=== PATIENT | male | born 1965 | race Caucasian/White ===

== ENCOUNTER → 2017-04-06 | Outpatient (CLI) | payer BC ==
--- NOTE | 2017-04-06 12:29 | MR ---
EXAMINATION TYPE: MR lumbar spine wo con DATE OF EXAM: 04/06/2017 12:10 PM COMPARISON: NONE HISTORY: intervertebral dis disorder, rt leg pain Multiplanar, MultiSpin echo imaging of the lumbar spine was performed. L1-L2: Normal disc appearance without desiccation. No herniation, protrusion or disc bulging. No ca nal stenosis is present. Foramina are patent bilaterally. L2-L3: Normal disc appearance without desiccation. No herniation, protrusion or disc bulging. No ca nal stenosis is present. Foramina are patent bilaterally. L3-L4: Normal disc appearance without desiccation. No herniation, protrusion or disc bulging. No ca nal stenosis is present. Foramina are patent bilaterally. L4-L5: Mild to moderate disc desiccation is noted. Posterocentral disc herniation effaces the ventral thecal sac without evidence for central stenosis or lateral recess stenosis. Near extrusion suspecte d. Foramina are patent bilaterally. L5-S1: Severe disc desiccation with vacuum disc and degenerative endplate marrow change. Retrolisthes is of L5 on S1 of 5.2 mm. Mild posterocentral disc herniation. Mild effacement ventral thecal sac. No evidence for central stenosis or lateral recess stenosis at this time. Lumbar segments are intact. No paraspinal masses are identified. Conus medullaris has a normal appe arance. IMPRESSION: 1. Degenerative disc disease as discussed. 2. Disc herniations at L4-5 and L5-S1.
== END | disposition home or self-care (01) ==
LOC: RADMRIMAIN 11:34
PROVIDERS: ATTEND Family Medicine
DX: M51.17 Intervertebral disc disorders with radiculopathy, lumbosacral region (principal)
CPT/HCPCS: 72148

== ENCOUNTER 2018-09-08 05:41 | Inpatient (IN) | payer BC ==
[2018-09-07 10:44] VITALS: BMI 22.8
[~2018-09-08 05:41] MED LIST: BACITRACIN 50,000 UNIT, POLYMYXIN B 500,000 UNIT in SODIUM CHLORIDE 0.9% IRRIGATIO 1,00... IRRIGATION ONE; ceFAZolin IN SWFI 2 GM/20 ML SYRINGE IVP ONE
[2018-09-08] MEDS ORDERED: DEXAMETHASONE SOD PHOSPHATE 10 MG/ML 1 ML VIAL IV ONE (06:06)
[2018-09-08] MEDS ORDERED: SCOPOLAMINE 1.5MG/72HR PATCH TRANSDERM ONE (06:06)
[2018-09-08] MEDS ORDERED: MIDAZOLAM 2 MG/2 ML VIAL IV PRN (06:06)
[2018-09-08] MEDS ORDERED: ONDANSETRON 4 MG/2 ML VIAL IVP ONE (06:06)
[2018-09-08] MEDS: LACTATED RINGERS 1,000 ML IV SCH (06:45)
[2018-09-08] MEDS ORDERED: LIDOCAINE 1% 20 ML VIAL (10MG/ML) FOR IV START INTRADERMA ONE (06:45)
[2018-09-08 06:57] LABS: Basophils % (A) 0 %; Eosinophils # (A) 0.1 k/uL (0-0.7); Eosinophils % (A) 1 %; HCT 48.5 % (39.0-53.0); HGB 15.9 gm/dL (13.0-17.5); Lymphocytes # (A) 1.7 k/uL (1.0-4.8); Lymphocytes % (A) 23 %; MCH 33.4 pg (25.0-35.0); MCHC 32.8 g/dL (31.0-37.0); MCV 101.9 fL (80.0-100.0); Mean Platelet Volume 6.7; Monocytes # (A) 0.7 k/uL (0-1.0); Monocytes % (A) 9 %; Neutrophils # (A) 4.9 k/uL (1.3-7.7); Neutrophils % (A) 65 %; Platelet Count 197 k/uL (150-450); RBC 4.76 m/uL (4.30-5.90); RDW 12.5 % (11.5-15.5); WBC 7.5 k/uL (3.8-10.6)
[2018-09-08 07:27] LABS: Anion Gap 9 mmol/L; Blood Urea Nitrogen 12 mg/dL (9-20); Calcium 9.8 mg/dL (8.4-10.2); Carbon Dioxide 23 mmol/L (22-30); Chloride 106 mmol/L (98-107); Glucose 83 mg/dL (74-99); Potassium 4.2 mmol/L (3.5-5.1); Sodium 138 mmol/L (137-145)
[2018-09-08] MEDS ORDERED: MIDAZOLAM 2 MG/2 ML VIAL ONE (07:32)
[2018-09-08] MEDS ORDERED: PROPOFOL 10 MG/ML 20 ML VIAL IV ONE (07:32)
[2018-09-08] MEDS ORDERED: LIDOCAINE 1% INJ 10MG/ML (20 ML MDV) ONE (07:32)
[2018-09-08] MEDS ORDERED: ROCURONIUM BROMIDE 10 MG/ML 10 ML VIAL IV ONE (07:32)
[2018-09-08] MEDS ORDERED: HEPARIN SODIUM,PORCINE 10,000 UNIT/ML 1 ML VIAL ONE (07:32)
[2018-09-08] MEDS ORDERED: PHENYLEPHRINE-0.9% NACL SYG 1 MG/10 ML SYRINGE ONE (07:32)
[2018-09-08] MEDS ORDERED: ONDANSETRON 4 MG/2 ML VIAL ONE (07:32)
[2018-09-08] MEDS ORDERED: fentaNYL (PF) 50 MCG/ML 2 ML AMP ONE (07:32)
[2018-09-08] MEDS ORDERED: SODIUM CHLORIDE 0.9% IRRIG 1,000 ML BTL IRRIGATION ONE (07:32)
[2018-09-08] MEDS ORDERED: THROMBIN (BOVINE) 5,000 UNIT VIAL TOPICAL ONE (08:03)
[2018-09-08] MEDS ORDERED: LIDOCAINE 0.5%-EPI 1:200,000 50 ML VIAL SQ ONE (08:03)
[2018-09-08] MEDS ORDERED: GELATIN SPONGE,ABSORB (LARGE) 1 EACH SPONGE TOPICAL ONE (08:03)
[2018-09-08] MEDS ORDERED: LACTATED RINGERS 1,000 ML IV ONE ×2 (08:31→11:40)
[2018-09-08] MEDS ORDERED: ONDANSETRON 4 MG/2 ML VIAL IVP PRN (11:54)
[2018-09-08] MEDS ORDERED: HYDROmorphone 1 MG/ML 1 ML SYRINGE IVP PRN (11:54)
[2018-09-08] MEDS ORDERED: BENZOCAINE/MENTHOL LOZENG 1 EACH LOZENGE MUCOUS MEM PRN (11:54)
[2018-09-08] MEDS ORDERED: MAGNESIUM HYDROXIDE 2,400 MG/10 ML CUP PO PRN (11:54)
[2018-09-08] MEDS ORDERED: MULTIVITAMINS, THERA 1 EACH TAB PO SCH (12:00)
--- NOTE | 2018-09-08 12:08 | P.OP ---
Date of Procedure: 09/08/18 Preoperative Diagnosis: Spinal stenosis L4 5 L5-S1, degenerative scoliosis, degenerative disc disease L4 5 L5-S1, herniated pulposus L4 5, lower extremity radiculopathy with weakness Postoperative Diagnosis: Same Anesthesia: GETA Pathology: none sent Condition: stable Disposition: PACU Description of Procedure: DESCRIPTION OF PROCEDURE(S): BRIEF OPERATIVE NOTE Preoperative Diagnosis: Spinal stenosis L4 5 L5-S1, degenerative scoliosis, degenerative disc disease L4 5 L5-S1, herniated pulposus L4 5, lower extremity radiculopathy with weakness Postoperative Diagnosis: Same Procedure: Laminectomy and decompression L4 5 L5-S1 Minimally invasive Posterior lateral decompression and facet fusion L4 5 L5-S1 Minimally invasive Transforaminal lumbar interbody fusion for a 360 fusion L4 5 L5-S1 Discectomy for decompression L4 5 L5-S1 Placement of interbody graft L4 5 L5-S1 Local autogenous bone grafting Harvesting of bone marrow aspirate via the vertebral body and pedicle of L4 Use of Cell Saver Use of bone graft extenders Surgeon: Dr. Cobos [employer] Installer: Samantha Morse Amanda Weimer PA's who is present throughout the entire the case persistence during positioning, dissection, exposure, visualization, and all crucial elements of the case as well as closure. Anesthesia: General anesthesia Estimated blood loss: Approximately 350 mL with 165 given back through Cell Saver Complications: None apparent Components implanted: K2M minimally invasive [place] pedicle screw system with 6.5 mm screws 2 rods one Shannon 9-12 extendable cage and 1 capstone interbody cage with 1 osteo amp sponge and 15 mL of DBX bone putty to supplemental local autogenous and bone marrow aspirate graft Disposition: To recovery room in good stable condition. OPERATIVE INDICATIONS The patient has had long-standing issues in their lower back and lower extremities. He's been having worsening pain despite conservative care. He was found have severe disc degeneration and stenosis at L4 5 and L5-S1. He had a disc herniation L4 5 as well. He was having low back and lower extremity radicular symptoms and was having worsening of his symptoms and inability to do his job and regular activities due to his pain; his lumbar spine. The patient has been through conservative treatment. We discussed various treatment options including surgery, and the patient wishes to proceed with surgery We discussed the risk, patient's alternatives and benefits of surgery including but not limited to, risk of bleeding risk of infection, risk of need for further surgery, risk of decreased, loss of motion, muscle function, malunion nonunion, hardware failure, nerve damage, paralysis, heart attack, blindness and . OPERATIVE SUMMARY After discussing all the risks, patient alternatives and benefits at length, the patient elected to proceed with surgical intervention, signed informed consent, and presented for their procedure. The patient was seen and examined in the preoperative holding area and the surgical site was marked. The patient was given antibiotics and brought to the operating room. The patient was sedated and intubated by anesthesia in standard fashion. The patient was positioned on to the operating room table in a prone position on the appropriate frame which was well-padded and well molded. We were careful to pad any bony prominences and pressure points. We were careful to maintain the patient's cervical spine and good neutral alignment and position throughout. The patient was prepped and draped in a normal standard fashion. An appropriate timeout and keystone protocol performed. We were able to proceed with the surgery. The local wound area was infiltrated with local anesthetic. I was able utilize C-arm guidance to establish appropriate position over the pedicles bilaterally at the appropriate levels at L4 5 and S1. With the appropriate levels confirmed was able to make small stab incisions over the appropriate pedicle sites bilaterally. Utilizing C-arm in his house able to establish a Jamshidi needle over the lateral aspect of the pedicle and advanced the trocar into the pedicle being careful not to breech superiorly inferiorly medially or laterally. Position was confirmed regularly with AP and lateral images on C-arm. I was able to establish the trocar into the pedicle appropriately into the posterior aspect of the vertebral body bilaterally at the appropriate levels. At L4 on the right I withdrew approximately 20 mL of bone marrow aspirate for use later in the case were autograft. I was able place the trocar appropriately at the pedicles at L4 5 and S1 bilaterally This was done at each of the pedicle positions and each of the vertebrae. I was able place the guidewire into the trocar and into the vertebral body appropriately under C-arm guidance. Dissection was taken down over the wire to the appropriate starting position for the screw placed. The appropriate length screw was chosen, threaded over the guidewire and screwed appropriately into the pedicle and vertebral body under C-arm guidance in excellent alignment and position with good bony purchase. This is done at each of the screw sites at the appropriate levels bilaterally at L4 5 and S1. With the screws intact I extended the incision to connect the screw hole sites on the left. I dissected down to establish access over the pars and lamina to the base of the spinous process. I was able to expose the facet joint. The capsule the facet was taken down and showed some facet arthrosis at the joint. I was able to use a combination of curettes and Kerrison rongeurs and a high- speed drill to take down the facet joint and do a facetectomy. At L5-S1 there is severe complete disc height loss. At L4 5 and L5-S1 there is evidence of facet arthrosis. At each of the levels a Partial laminectomy was also performed. I was able get excellent foraminal decompression and central decompression with undermining across midline to perform a laminectomy centrally and contralaterally. I was able get good central decompression. The ligamentum flavum was taken down to further decompress centrally and at bilateral neural foramen. I was able to expose the disc space and visualize the traversing nerve root. Note was made of some disc protrusion at the level causing further compression of the nerve root. At L4 5 there was obvious disc herniation. I was able to establish a annulotomy at the appropriate level protecting soft tissue and neural structures. Note was made of some disc desiccation at each of the disc interbody spaces with nearly complete disc height loss at L5-S1. I performed a complete discectomy with accommodation of curettes and rasps and scrapers. I was able get good endplate preparation at the disc space. I sized for the appropriate size interbody spacer protecting the soft tissue and neural structures. The wound was copiously irrigated and suctioned dry. There is no evidence of any dural tear or leak. I was able to pack the disc space with local autogenous bone graft as well as a small amount of bone graft which was also placed into the interbody cage itself. Protecting the soft tissue structures and neural structures I was able place the interbody cage in good alignment and good position with good fit and fill at the interbody space. His issues was confirmed with C-arm guidance. Good hemostasis maintained. There is no evidence of any dural tear or leak. The wound was irrigated and suctioned dry. With the hardware intact, intraoperative C-arm imaging was again taken which showed good alignment and position of the hardware at the appropriate levels at L4 5 and L5-S1. We were then able to measure, contour and place the rods and appropriate hardware bilaterally. I was able to place capcrews, tighten them down, and torque them with the torque screwdriver appropriately. With this intact I was able to place the local autogenous bone graft with additional bone graft enhancer as necessary into the posterior lateral gutters over the decorticated transverse processes. The remainder of the bone graft was placed over the facet joint on the contralateral side after taking down the facet joint capsule. With the bone graft intact, a stable construct, and good decompression at the appropriate levels, we were able to proceed with closure. Good hemostasis was maintained. There is no evidence of dural tear or leak. The fascia was closed for a watertight closure. he subcuticular tissue was closed with absorbable suture. The wound was cleaned and dried and dressed with the appropriate dressing. The drapes were broken down. The patient was gently rolled back onto their hospital bed being careful to maintain their cervical spine and good neutral alignment and position. They were woken up by anesthesia, extubated, and brought to the recovery room in good stable condition. The patient will be admitted to the hospital for appropriate postoperative care , medical management and monitoring. We will continue to follow them closely about the postoperative course.
[2018-09-08] MEDS: HYDROmorphone 1 MG/ML 1 ML SYRINGE IVP PRN ×7 (12:31→23:49)
[2018-09-08] MEDS ORDERED: MEPERIDINE 50 MG/ML SYRINGE IVP ONE ×2 (12:49→13:04)
--- NOTE | 2018-09-08 13:34 | XR ---
EXAMINATION TYPE: XR lumbar spine 2 or 3V DATE OF EXAM: 09/08/2018 CLINICAL HISTORY: pain TECHNIQUE: 5 paper images are submitted. COMPARISON: None. FINDINGS: Min invasive. Dr. Cobos. 5 images scanned. 84 sec fluoro time. Alignment is satisfactory. IMPRESSION: Satisfactory alignment.
[2018-09-08] MEDS: SODIUM CHLORIDE 0.9% 1,000 ML IV SCH (16:23)
[2018-09-08] MEDS: oxyCODONE-APAP 10-325MG 1 EACH TAB PO PRN ×2 (16:49→22:09)
[2018-09-08] MEDS: NICOTINE POLACRILEX 2 MG GUM BUCCAL PRN ×2 (17:25→22:06)
[2018-09-08] MEDS: ceFAZolin IN SWFI 2 GM/20 ML SYRINGE IVP SCH ×2 (17:25→23:50)
[2018-09-08] MEDS: NICOTINE 21MG/24HR PATCH TRANSDERM SCH (17:25)
[2018-09-08] MEDS: METOPROLOL TARTRATE 12.5 MG TAB PO SCH (18:22)
[2018-09-08] MEDS: DIAZEPAM 5 MG TAB PO SCH ×2 (18:23→22:06)
--- NOTE | 2018-09-08 20:45 | CONS ---
CONSULTATION DATE OF CONSULTATION: 09/08/2018 REASON FOR CONSULTATION: Medical management requested by Dr. Cobos. CONSULTATION: This is a 52-year-old patient who follows with Dr. Andre Osei out of [place]. Patient has been having chronic low back pain for over 10 years, progressively getting worse. Pain does localize to the lower back. It does radiate down to the leg with a burning sensation. The patient has trouble standing after some time, though patient has continued to work. Patient also noted that it has been interfering with his urination, he describes. Hence patient underwent surgery for the same. Postoperatively the patient has been having pain and muscle spasms. Patient also drinks about a pint of whiskey every night and some beer, last drink being the day before. When I came in, patient was rather anxious, agitated. Patient also smokes a pack and a half a day and seems to be having early alcohol withdrawals with tachycardia, agitation. Patient's is present. Patient has been drinking for quite a while. Patient's chronic stable conditions include hypertension and depression. Patient has slight perspiration currently. Postoperatively lying in bed, somewhat restless. Currently no hallucinations. REVIEW OF SYSTEMS: CONSTITUTIONAL: Tired. HEENT: None. RESPIRATORY: Slight shortness of breath. CARDIOVASCULAR: None. GASTROINTESTINAL: None. GENITOURINARY: As above. MUSCULOSKELETAL: Low back pain, muscle spasms. DERMATOLOGICAL: None. HEMATOLOGICAL: None. LYMPHATICS: None. PSYCHIATRY: Anxious. Depression. NEUROLOGICAL: Patient had radicular pain prior to surgery. PAST MEDICAL HISTORY: 1. Hypertension. 2. Osteoarthritis. 3. Lower back pain with radiation. 4. Depression. 5. ADHD. PAST SURGICAL HISTORY: 1. Hemorrhoid. 2. Hernia repair. SOCIAL HISTORY: Has been smoking 2 packs a day for close to 40 years. Drinks a pint of whiskey at least every day and a beer a day. . Does work. FAMILY HISTORY: Reviewed; noncontributory to presentation. HOME MEDICATIONS: 1. Percocet 10 one tablet at bedtime p.r.n. 2. Adderall 10 mg a day. 3. Tenormin 25 mg b.i.d. ALLERGIES: NONE. PHYSICAL EXAMINATION: Temperature 98.5, pulse 92, respiration 16, blood pressure 162/89, pulse ox 100% on 2 L. GENERAL APPEARANCE: Average build. Lying in bed. Somewhat agitated, restless. EYES: Pupils equal. Conjunctivae normal. HEENT: External appearance of nose and ears normal. Oral cavity normal. NECK: JVD not raised. Mass not palpable. RESPIRATORY: Effort increased. LUNGS: Decreased breath sounds. CARDIOVASCULAR: First and second sounds normal. No edema. ABDOMEN: Soft, non-tender. Liver and spleen not palpable. LYMPHATIC: No lymph node palpable in neck or axillae. PSYCHIATRY: Alert and oriented x3. Mood and affect very anxious-appearing, agitated. MUSCULOSKELETAL: Patient has dressing over the operative site. NEUROLOGICAL: Patient is moving both lower extremities. INVESTIGATIONS: White count 7.5, hemoglobin 15.9, potassium 4.2. ASSESSMENT: 1. Lumbar spine degenerative joint disease stenosis with lower extremity radiculopathy followed by surgery. 2. Chronic nicotine dependence. Patient is a cigarette smoker with nicotine withdrawal. 3. Chronic alcohol dependence. 4. Acute alcohol withdrawal syndrome. 5. Essential hypertension. 6. Depression not otherwise specified. PLAN: For early alcohol withdrawal syndrome and early DTs, we will start the patient on Valium 5 mg p.o. q.8. I will also put the patient on Lopressor 12.5 p.o. 3 times a day for sympathetic drive to be controlled. Other pain medications patient is getting from Dr. Cobos for his lower back surgery. We will also give a nicotine patch and nicotine gum for withdrawal symptoms. Care was discussed with the patient and his . Questions were answered. Keep a close eye on the patient. Patient is also on IV prophylaxis with IV Ancef. Thank you, Dr. Cobos. MMANNAMARIEL / XENIAN: [id number] /
[2018-09-08] MEDS ORDERED: ATENOLOL 25 MG TAB PO SCH (21:00)
[2018-09-09] MEDS: oxyCODONE-APAP 10-325MG 1 EACH TAB PO PRN ×3 (03:19→21:35)
[2018-09-09] MEDS: NICOTINE POLACRILEX 2 MG GUM BUCCAL PRN ×3 (03:21→21:36)
[2018-09-09] MEDS: HYDROmorphone 1 MG/ML 1 ML SYRINGE IVP PRN ×3 (04:49→18:32)
[2018-09-09] MEDS: SODIUM CHLORIDE 0.9% 1,000 ML IV SCH ×2 (04:53→15:46)
[2018-09-09] MEDS: LACTATED RINGERS 1,000 ML IV SCH (07:15)
[2018-09-09] MEDS: NICOTINE 21MG/24HR PATCH TRANSDERM SCH (07:55)
[2018-09-09] MEDS: DIAZEPAM 5 MG TAB PO SCH ×3 (07:56→21:30)
[2018-09-09] MEDS: SENNOSIDES-DOCUSATE SODIUM 1 EACH TAB PO SCH (07:56)
[2018-09-09] MEDS: THIAMINE 100 MG TAB PO SCH (07:56)
[2018-09-09] MEDS: MULTIVITAMINS, THERA 1 EACH TAB PO SCH (07:56)
[2018-09-09] MEDS: METOPROLOL TARTRATE 12.5 MG TAB PO SCH ×2 (07:56→21:30)
[2018-09-09 08:48] LABS: Basophils % (A) 0 %; Eosinophils % (A) 0 %; HCT 43.1 % (39.0-53.0); HGB 14.4 gm/dL (13.0-17.5); Lymphocytes # (A) 0.9 k/uL (1.0-4.8); Lymphocytes % (A) 8 %; MCH 33.9 pg (25.0-35.0); MCHC 33.3 g/dL (31.0-37.0); MCV 101.7 fL (80.0-100.0); Mean Platelet Volume 7.1; Monocytes % (A) 8 %; Neutrophils # (A) 9.8 k/uL (1.3-7.7); Neutrophils % (A) 83 %; Platelet Count 144 k/uL (150-450); RBC 4.24 m/uL (4.30-5.90); RDW 12.3 % (11.5-15.5); WBC 11.9 k/uL (3.8-10.6)
[2018-09-09] MEDS ORDERED: Dextroamphetamine/Amphetamine [Adderall] 10 MG PO SCH (09:00)
[2018-09-09 09:10] LABS: Anion Gap 11 mmol/L; Blood Urea Nitrogen 6 mg/dL (9-20); Calcium 8.9 mg/dL (8.4-10.2); Carbon Dioxide 18 mmol/L (22-30); Chloride 105 mmol/L (98-107); Glucose 76 mg/dL (74-99); Potassium 4.3 mmol/L (3.5-5.1); Sodium 134 mmol/L (137-145)
--- NOTE | 2018-09-09 13:30 | P.PN ---
Progress Note - Text Progress Note Date: 09/09/18 Postoperative day #1 Patient is seen and examined today at bedside. The patient has some pain around the surgical site as expected. Pain is being controlled with medication. He was having significant difficulty with his pain control as he does take significant amount of pain medication preoperatively. We were able to sit him up at that side today. Physical Exam Afebrile with stable vital signs Abdomen is soft nontender. Chest has good excursion deep and space expiration The incision site is clean dry and intact. No erythema there is no purulence. There is small drainage on the dressing but there is no active drainage. There is some swelling at the site but it appears stable. Extremities have not had neurologic change from prior to surgery. He has sustained dorsal flexion plantarflexion and EHL intact. Calves and thighs were soft nontender without evidence of DVT. Negative Homans Assessment/Plan Postoperative day #1 status post minimally invasive decompression and fusion L4 5 L5-S1 for spinal stenosis with degenerative disc disease and general scoliosis and lower extremity radiculopathy Patient is progressing as expected from the surgery. He is having some difficulty with his pain control but he seems to be stabilizing. Hopefully we' ll we will be able to transition him from IV medications oral medications tomorrow her the next day. He is considering possibility of going home tomorrow and we will need to be stable with oral medications before he is able to be discharged. We will continue to increase the patient's mobilization with therapy. We will continue pain control with oral or IV medications. We'll continue to follow patient closely.
--- NOTE | 2018-09-09 23:25 | PN ---
PROGRESS NOTE DATE OF SERVICE: 09/09/2018. PRESENTING COMPLAINT: Lumbar surgery. INTERVAL HISTORY: Patient is status post lumbar surgery, was put on Valium for alcohol withdrawal and also nicotine withdrawal, on nicotine patch and nicotine gum. The patient states having significant back pain, not much of an appetite. Normally does not eat much anyway he says. The patient sat on the edge of the bed. No nausea, vomiting. No fever. REVIEW OF SYSTEMS: Done for constitutional, cardiovascular, GI, pulmonary, musculoskeletal and relevant findings above. CURRENT MEDICATIONS: Reviewed that include Valium 5 mg t.i.d. and Lopressor. PHYSICAL EXAMINATION: VITAL SIGNS: Temperature 99.2, pulse 94, respiration 18, blood pressure 130/82, pulse ox 98% on room air. GENERAL APPEARANCE: Lying in bed, a bit less anxious. EYES: Pupils equal. Conjunctivae normal. NECK: JVD not raised. Mass not palpable. RESPIRATORY effort normal. LUNGS decreased breath sounds. CARDIOVASCULAR : 1st and 2nd sounds, no edema. ABDOMEN: Soft, nontender. Liver and spleen not palpable. PSYCHIATRY: Alert and oriented x3. Mood and affect is normal. INVESTIGATIONS: White count 11.9, hemoglobin 14.4. Potassium 4.3. ASSESSMENT: 1. Lumbar surgery for severe degenerative joint disease, spinal stenosis and radiculopathy. 2. Chronic nicotine dependence in a cigarette smoker with nicotine withdrawal. 3. Chronic alcohol dependence. 4. Acute alcohol withdrawal syndrome. 5. Essential hypertension. 6. Depression, not otherwise specified. PLAN: We will keep the patient on current dose of Valium today. Switch to 2 mg 3 times a day. Keep the patient on nicotine patch. Activity as per Dr. Cobos. The patient encouraged to improve his oral intake. MMODL / IJN: [id number] /
[2018-09-10] MEDS: HYDROmorphone 1 MG/ML 1 ML SYRINGE IVP PRN ×4 (01:44→23:43)
[2018-09-10] MEDS: oxyCODONE-APAP 10-325MG 1 EACH TAB PO PRN ×3 (03:40→19:44)
[2018-09-10] MEDS: LACTATED RINGERS 1,000 ML IV SCH (05:10)
[2018-09-10] MEDS: SODIUM CHLORIDE 0.9% 1,000 ML IV SCH ×2 (05:10→19:32)
[2018-09-10] MEDS: NICOTINE POLACRILEX 2 MG GUM BUCCAL PRN ×2 (06:32→15:22)
[2018-09-10 07:39] LABS: Basophils % (A) 0 %; Eosinophils % (A) 0 %; HCT 39.9 % (39.0-53.0); HGB 13.7 gm/dL (13.0-17.5); Lymphocytes # (A) 0.8 k/uL (1.0-4.8); Lymphocytes % (A) 7 %; MCH 34.5 pg (25.0-35.0); MCHC 34.3 g/dL (31.0-37.0); MCV 100.5 fL (80.0-100.0); Mean Platelet Volume 7.2; Monocytes # (A) 0.9 k/uL (0-1.0); Monocytes % (A) 8 %; Neutrophils # (A) 9.3 k/uL (1.3-7.7); Neutrophils % (A) 82 %; Platelet Count 140 k/uL (150-450); RBC 3.97 m/uL (4.30-5.90); RDW 12.3 % (11.5-15.5); WBC 11.3 k/uL (3.8-10.6)
[2018-09-10] MEDS: METOPROLOL TARTRATE 12.5 MG TAB PO SCH ×2 (08:32→21:04)
[2018-09-10] MEDS: SENNOSIDES-DOCUSATE SODIUM 1 EACH TAB PO SCH (08:32)
[2018-09-10] MEDS: NICOTINE 21MG/24HR PATCH TRANSDERM SCH (08:33)
[2018-09-10] MEDS: DIAZEPAM 2 MG TAB PO SCH ×4 (08:33→21:04)
[2018-09-10] MEDS ORDERED: oxyCODONE-APAP 10-325MG 1 EACH TAB PO PRN (08:50)
--- NOTE | 2018-09-10 09:00 | P.PN ---
Progress Note - Text Progress Note Date: 09/10/18 Orthopedic Spine Patient is a pleasant 52-year-old male who is seen and examined at the bedside following posterior lateral decompression and fusion performed Thursday. Patient states they are doing ok postsurgically. He has been able to get out of bed on his own and ambulate to the restroom. He has had a bowel movement this morning. He does continue to ambulate and change positions slowly. He continues to require IV and oral medications for pain control. He continues to have low back pain at the surgical sites and left lower extremity radiculopathy. He is hoping to improve today so he can be discharged home tomorrow. Currently does not complain of nausea, vomiting, fever, or chills. Patient states pain has been adequately controlled. Patient is eating and voiding freely without difficulty. Physical Exam Lumbar Fusion: Status post surgical day number 2 Patient is awake, alert, and oriented 3 Vital signs stable Good chest excursion with deep inspiration and expiration Abdomen soft nontender Dorsiflexion, plantarflexion, and extensor hallucis longus positive sustained bilaterally No signs or symptoms of DVT; no calf pain; pneumatic cuffs not currently intact bilateral lower extremities Dressing is dry and intact; no erythema, purulence, or signs of infection No significant pain with palpation over the surgical sites Neurovascularly intact bilaterally lower extremities Assessment: Status post L4-5 & L5-S1 minimally invasive posterior lateral decompression and fusion with transforaminal lumbar interbody fusion Lumbosacral spinal canal stenosis Degenerative scoliosis Lumbosacral degenerative disc disease Left lower extremity radiculopathy with weakness History of hypertension, current every day smoker, and frequent alcohol consumption Plan: 1. Ambulate as tolerated; work with Physical Therapy to increase mobilization 2. Continue pain control with oral medications; will plan to start weaning the patient off of Dilaudid IV and will plan to increase Percocet 10 mg has 325 mg 1 -2 tabs every 6 hours as needed for pain 3. Dressing to remain intact with Telfa and Tegaderm; plan for dressing change prior to discharge home 4. Medical management can continue to manage patient for patient's other medical issues 5. We will continue to follow the patient closely; If the patient is able to improve and pain is better controlled oral medications, we will plan for discharge home as early as tomorrow, 09/11/2018 6. Patient can follow-up with Yaw Brownlee PA-C or Dr. James Cobos at [facility] in 2-3 weeks following discharge
[2018-09-10] MEDS: THIAMINE 100 MG TAB PO SCH (14:05)
[2018-09-10] MEDS: MULTIVITAMINS, THERA 1 EACH TAB PO SCH (14:05)
[2018-09-11] MEDS: NICOTINE POLACRILEX 2 MG GUM BUCCAL PRN ×2 (00:29→10:31)
--- NOTE | 2018-09-11 01:23 | PN ---
PROGRESS NOTE DATE OF SERVICE: September 10, 2018. PRESENTING COMPLAINT: Lumbar surgery. INTERVAL HISTORY: Patient is status post lumbar surgery. Also had alcohol and nicotine withdrawal. Doing much better today sitting up in a chair, smiling. He has got a brace. Pain is better controlled. Did tolerate some diet. Far less anxious. REVIEW OF SYSTEMS: Done for constitutional, cardiovascular, GI, pulmonary, musculoskeletal and relevant findings as above. CURRENT MEDICATIONS: Reviewed that include Valium 2 mg p.o. t.i.d. and normal saline. PHYSICAL EXAMINATION: VITAL SIGNS: Temperature 98.6, pulse 100, respirations 16, blood pressure 138/85, pulse ox 99% on room air. GENERAL APPEARANCE: Sitting up in a chair, comfortable, smiling. EYES: Pupils equal. Conjunctivae normal. NECK: JVD not raised. Mass not palpable. RESPIRATORY: Effort normal. LUNGS: Decreased breath sounds. CARDIOVASCULAR: 1st and 2nd sounds normal. No edema. ABDOMEN: Soft, nontender. Liver and spleen not palpable. PSYCHIATRY: Alert and oriented x3. Mood and affect stable. INVESTIGATIONS: White count 11.3, hemoglobin 13.7. ASSESSMENT: 1. Lumbar surgery for severe degenerative joint disease and spinal stenosis and radiculopathy. 2. Chronic nicotine dependence in a cigarette smoker with nicotine withdrawal. 3. Chronic alcohol dependence. 4. Acute alcohol withdrawal syndrome. 5. Essential hypertension. 6. Depression, not otherwise specified. 7. Rule out hyperthyroidism. PLAN: Will cut back the dose of Valium further. Also DC the IV fluids. Overall, patient looking much better. MMODL / IJN: [id number] /
[2018-09-11] MEDS: oxyCODONE-APAP 10-325MG 1 EACH TAB PO PRN ×2 (04:29→09:29)
[2018-09-11 07:11] VITALS: BP 139/84; PULSE 84; RESP 18; TEMP 97.8
[2018-09-11] MEDS ORDERED: DIAZEPAM 2 MG TAB PO SCH (09:00)
[2018-09-11] MEDS: METOPROLOL TARTRATE 12.5 MG TAB PO SCH (09:24)
[2018-09-11] MEDS: NICOTINE 21MG/24HR PATCH TRANSDERM SCH (09:25)
[2018-09-11] MEDS: THIAMINE 100 MG TAB PO SCH (09:25)
[2018-09-11] MEDS: LACTATED RINGERS 1,000 ML IV SCH (09:25)
[2018-09-11] MEDS: SENNOSIDES-DOCUSATE SODIUM 1 EACH TAB PO SCH (09:25)
[2018-09-11] MEDS: MULTIVITAMINS, THERA 1 EACH TAB PO SCH (09:25)
--- NOTE | 2018-09-11 10:47 | P.DS ---
Providers Date of admission: 09/08/18 05:41 Expected date of discharge: 09/11/18 Attending physician: Vito Cobos Consults: 09/08/18 11:54 Consult Physician Routine Consulting Provider: Kirk Carmona Consult Reason/Comments: Medical management Do you want consulting provider notified?: Yes Primary care physician: Andre Osei - Discharge Diagnosis(es) (1) Lumbosacral spinal stenosis Current Visit: Yes Status: Acute (2) Lumbar spinal stenosis Current Visit: Yes Status: Acute (3) Lumbar degenerative disc disease Current Visit: Yes Status: Acute (4) DDD (degenerative disc disease), lumbosacral Current Visit: Yes Status: Acute (5) Degenerative scoliosis in adult patient Current Visit: Yes Status: Acute (6) Lumbar back pain with radiculopathy affecting lower extremity Current Visit: Yes Status: Acute (7) Herniated nucleus pulposus, lumbar Current Visit: Yes Status: Acute (8) Status post lumbar spinal fusion Current Visit: Yes Status: Acute (9) Hypertension Current Visit: Yes Status: Acute (10) Tobacco use Current Visit: Yes Status: Acute Hospital Course: This is a pleasant 52-year-old male who presented with L4-5 and L5-S1 degenerative disc disease and spinal canal stenosis, L4-5 herniated nucleus pulposus, degenerative scoliosis, and lower extremity radiculopathy with weakness who failed outpatient conservative therapy. He was admitted for an L4- 5 and L5-S1 minimally invasive posterior lateral decompression and fusion with transforaminal lumbar interbody fusion. The patient tolerated the procedure well and did well postoperatively. He had some difficulty with pain control initially states this pain has been steadily improving and has been controlled. He has been able to discontinue Dilaudid. Pain continues to be control with Percocet 10 mg/325 mg which he was previously prescribed in the outpatient setting by Dr. Osei. Condition on day of discharge stable. Patient will be discharged home. Patient was cleared preoperatively for surgery by . Patient currently denies any nausea, vomiting, fever, or chills. Patient is eating and voiding freely without difficulty. Patient may shower Tegaderm dressing intact. Patient may remove Tegaderm dressing in 2 days and shower without a dressing at that time. Patient should keep Steri-Strips intact and allow them to fall off naturally. Patient should refrain from driving until at least after their first follow-up appointment in the office. Patient should avoid excessive bending, lifting, and twisting; no lifting greater than 10 pounds. MAPS has been reviewed today, 09/11/2018, with an Overall Overdose Risk Score of 110. An "Opiod Start Talking" Forn has been signed by the patient and myself in place in the patient's chart. A prescription has been written for Percocet 10 mg/325 mg 1 tab every 8 hours as needed for pain dispense #21. Patient will plan to follow with Dr. Osei in the outpatient setting who may plan to prescribe his narcotic medications at that time. Patient has a medical history which also includes hypertension with current every day tobacco use and frequent consumption of alcohol. Physical Exam on day of discharge: Patient is awake, alert, and oriented 3 Vital signs stable Good chest excursion with deep inspiration and expiration Abdomen soft nontender No signs or symptoms of DVT; no calf pain Extensor hallucis longus, plantarflexion, and dorsiflexion positive sustained bilateral lower extremities Incision is clean, dry, and intact; no erythema, purulence, or signs of infection Tegaderm dressing and non-stick Telfa intact Procedures: L4-5 and L5-S1 minimally invasive posterior lateral decompression and fusion with transforaminal lumbar interbody fusion Patient Condition at Discharge: Stable Plan - Discharge Summary Discharge Rx Participant: Yes New Discharge Prescriptions: New oxyCODONE-APAP 10-325MG [Percocet 10-325 mg] 1 tab PO Q8HR PRN #21 tab PRN Reason: Pain No Action oxyCODONE-APAP 10-325MG [Percocet 10-325 mg] 1 tab PO HS PRN PRN Reason: Pain Dextroamphetamine/Amphetamine [Adderall] 10 mg PO DAILY Atenolol [Tenormin] 25 mg PO BID Discharge Medication List Atenolol [Tenormin] 25 mg PO BID 09/07/18 [History] Dextroamphetamine/Amphetamine [Adderall] 10 mg PO DAILY 09/07/18 [History] oxyCODONE-APAP 10-325MG [Percocet 10-325 mg] 1 tab PO HS PRN 09/07/18 [History] oxyCODONE-APAP 10-325MG [Percocet 10-325 mg] 1 tab PO Q8HR PRN #21 tab 09/11/18 [Rx] Follow up Appointment(s)/Referral(s): Vito Cobos DO [Doctor of Osteopathic Medicine] - 09/24/18 9:00 am (With Marcos Brownlee) Andre Osei MD [Primary Care Provider] - 09/14/18 4:45 pm Activity/Diet/Wound Care/Special Instructions: 1. Keep site clean. 2. May shower with waterproof Tegaderm intact. Do not soak in a tub. 3. On Thursday May shower with area uncovered, but leave Steri-Strips intact and allow them to fray off on their own. 4. May ambulate to tolerance. 5. Avoid heavy or rigorous activity. No excessive or repetitive bending twisting or lifting. 6. No climbing. 7. No lifting greater than 20 pounds. 8. LSO brace for comfort. 9. Take medications as prescribed. Discharge Disposition: HOME SELF-CARE
--- NOTE | 2018-09-12 22:58 | PN ---
PROGRESS NOTE DATE OF SERVICE: 09/11/2018 PRESENTING COMPLAINT: Lumbar surgery. INTERVAL HISTORY: Patient is status post lumbar surgery, also treated for alcohol and nicotine withdrawal, doing much better. Has been in the hallway somewhat hyperactive practically. is present. Pain is much better controlled. The patient dose was tapered off. Valium dose was tapered off. REVIEW OF SYSTEMS: Done for constitutional, cardiovascular, GI, pulmonary, musculoskeletal and findings as above. CURRENT MEDICATIONS: Reviewed. PHYSICAL EXAMINATION: VITAL SIGNS: Temperature 97.8, pulse 84, respiratory 18, blood pressure 139/84, pulse ox 99% on room air. GENERAL APPEARANCE: Sitting in a chair, comfortable, a bit anxious. EYES: Pupil's equal. Conjunctivae normal. NECK JVD not raised. Mass not palpable. RESPIRATORY effort normal. LUNGS: Decreased breath sounds. CARDIOVASCULAR: 1st and 2nd sounds normal. No edema. ABDOMEN: Soft, nontender. Liver and spleen not palpable. The patient is witnessed to walk up and down the hurley. INVESTIGATIONS: No blood work from today. ASSESSMENT: 1. Lumbar surgery for severe degenerative joint disease and spinal stenosis with clinical much improvement postsurgical. 2. Chronic nicotine dependence in a cigarette smoker and nicotine withdrawal. 3. Chronic alcohol dependence. 4. Acute alcohol withdrawal syndrome, much improved. 5. Essential hypertension. 6. Depression, not otherwise specified. 7. Hyperthyroidism ruled out. PLAN: I had a very long talk with the patient and the . The patient kept insisting that he will take alcohol, though cut down the dose and also it was explained to him repeatedly that he has already been off alcohol and smoking for the last 4 days and does sometimes heated discussion between the and the patient, did calm them down and kept reinforcing to the patient the importance of complete cessation and to get help outside if he needs to. The patient will be discharged on nicotine patch. Other pain medications per Dr. Cobos's team. Total time of about 40 minutes was spent with over 25-30 minutes of discussion. MMANNAMARIEL / IJN: [id number] /
== END 2018-09-11 13:46 | disposition home or self-care (01) | DRG 454 ==
LOC: 2ORMAIN 05:41 → 4SSUR 12:31
PROVIDERS: ADMIT Orthopaedic Surgery Orthopaedic Surgery of the Spine; ATTEND Orthopaedic Surgery Orthopaedic Surgery of the Spine
PROC: 0SG0071 Fusion of Lumbar Vertebral Joint with Autologous Tissue Substitute, Posterior Approach, Posterior Column, Open Approach (ICD-10-PCS; 2018-09-08)
PROC: 0SG30AJ Fusion of Lumbosacral Joint with Interbody Fusion Device, Posterior Approach, Anterior Column, Open Approach (ICD-10-PCS; 2018-09-08)
PROC: 0SG3071 Fusion of Lumbosacral Joint with Autologous Tissue Substitute, Posterior Approach, Posterior Column, Open Approach (ICD-10-PCS; 2018-09-08)
PROC: 0ST20ZZ Resection of Lumbar Vertebral Disc, Open Approach (ICD-10-PCS; 2018-09-08)
PROC: 0ST40ZZ Resection of Lumbosacral Disc, Open Approach (ICD-10-PCS; 2018-09-08)
PROC: 07DS3ZZ Extraction of Vertebral Bone Marrow, Percutaneous Approach (ICD-10-PCS; 2018-09-08)
PROC: 30233N0 Transfusion of Autologous Red Blood Cells into Peripheral Vein, Percutaneous Approach (ICD-10-PCS; 2018-09-08)
PROC: 0SG00AJ Fusion of Lumbar Vertebral Joint with Interbody Fusion Device, Posterior Approach, Anterior Column, Open Approach (ICD-10-PCS; principal; 2018-09-08 07:30)
DX: M48.07 Spinal stenosis, lumbosacral region (principal); F10.231 Alcohol dependence with withdrawal delirium; F17.213 Nicotine dependence, cigarettes, with withdrawal; M47.16 Other spondylosis with myelopathy, lumbar region; F32.9 Major depressive disorder, single episode, unspecified; F90.9 Attention-deficit hyperactivity disorder, unspecified type; G89.29 Other chronic pain; I10 Essential (primary) hypertension; M19.90 Unspecified osteoarthritis, unspecified site; M51.17 Intervertebral disc disorders with radiculopathy, lumbosacral region; M51.16 Intervertebral disc disorders with radiculopathy, lumbar region; M47.22 Other spondylosis with radiculopathy, cervical region; M43.17 Spondylolisthesis, lumbosacral region; M48.061 Spinal stenosis, lumbar region without neurogenic claudication; M41.86 Other forms of scoliosis, lumbar region; F41.9 Anxiety disorder, unspecified; H91.90 Unspecified hearing loss, unspecified ear; R26.9 Unspecified abnormalities of gait and mobility; Z79.899 Other long term (current) drug therapy; Z83.3 Family history of diabetes mellitus; Z82.49 Family history of ischemic heart disease and other diseases of the circulatory system
CPT/HCPCS: 72100; 80048; 84443; 85025; 86850; 86891; 86900; 86901

== ENCOUNTER → 2019-07-23 | Outpatient (CLI) | payer BC ==
[2019-07-23 11:25] LABS: Basophils # (A) 0.1 k/uL (0-0.2); Basophils % (A) 1 %; Eosinophils # (A) 0.2 k/uL (0-0.7); Eosinophils % (A) 3 %; HCT 49.6 % (39.0-53.0); HGB 16.4 gm/dL (13.0-17.5); Lymphocytes # (A) 3.1 k/uL (1.0-4.8); Lymphocytes % (A) 50 %; MCH 34.1 pg (25.0-35.0); MCHC 33.1 g/dL (31.0-37.0); MCV 103.2 fL (80.0-100.0); Macrocytosis Slight; Mean Platelet Volume 5.7; Monocytes # (A) 0.4 k/uL (0-1.0); Monocytes % (A) 7 %; Neutrophils # (A) 2.1 k/uL (1.3-7.7); Neutrophils % (A) 35 %; Platelet Count 213 k/uL (150-450); RBC 4.81 m/uL (4.30-5.90); RDW 12.7 % (11.5-15.5); WBC 6.1 k/uL (3.8-10.6)
[2019-07-23 16:48] LABS: African American GFR (CKD) 114.2 (60.0-200.0); Albumin 4.8 g/dL (3.80-4.90); Albumin/Globulin Ratio 2.53 (1.60-3.17); Anion Gap 6.3 mmol/L (4.00-12.00); BUN/Creat Ratio 7.78 Ratio (12.00-20.00); Calcium 9.6 mg/dL (8.7-10.3); Carbon Dioxide 29.7 mmol/L (21.6-31.8); Chol/HDL Ratio 2.6; Globulin 1.9 g/dL (1.6-3.3); LDL Cholesterol,Calculated 66.6 mg/dL (0.0-131.0); Potassium 4.5 mmol/L (3.5-5.5); Total Bilirubin 0.4 mg/dL (0.2-1.2); Total Protein 6.7 g/dL (6.2-8.2); VLDL Calculation 45.4 mg/dL (5.00-40.00)
== END | disposition home or self-care (01) ==
LOC: LABWHC1 10:22
PROVIDERS: ATTEND Family Medicine
DX: Z00.00 Encounter for general adult medical examination without abnormal findings (principal); Z12.11 Encounter for screening for malignant neoplasm of colon
CPT/HCPCS: 36415; 80053; 80061; 82607; 84153; 84443; 85025

== ENCOUNTER → 2020-12-08 | Outpatient (CLI) | payer BC ==
[2020-12-08 12:35] LABS: Basophils % (A) 0 %; Eosinophils # (A) 0.2 k/uL (0-0.7); Eosinophils % (A) 3 %; HCT 49.2 % (39.0-53.0); HGB 16.3 gm/dL (13.0-17.5); Lymphocytes # (A) 2.2 k/uL (1.0-4.8); Lymphocytes % (A) 37 %; MCH 34.4 pg (25.0-35.0); MCHC 33.2 g/dL (31.0-37.0); MCV 103.5 fL (80.0-100.0); Macrocytosis Slight; Mean Platelet Volume 6.9; Monocytes # (A) 0.5 k/uL (0-1.0); Monocytes % (A) 8 %; Neutrophils # (A) 2.9 k/uL (1.3-7.7); Neutrophils % (A) 49 %; Platelet Count 201 k/uL (150-450); RBC 4.75 m/uL (4.30-5.90); RDW 12.5 % (11.5-15.5)
[2020-12-08 15:06] LABS: Erythrocyte Sedimentation Rate 2 mm/hr (0-15)
[2020-12-08 17:51] LABS: African American GFR (CKD) 99.1 (60.0-200.0); Albumin 4.4 g/dL (3.80-4.90); Albumin/Globulin Ratio 1.69 (1.60-3.17); Anion Gap 4.9 mmol/L (4.00-12.00); Calcium 10.3 mg/dL (8.7-10.3); Carbon Dioxide 29.1 mmol/L (21.6-31.8); Globulin 2.6 g/dL (1.6-3.3); Non-African American GFR(CKD) 85.5 (60.0-200.0); Potassium 4.4 mmol/L (3.5-5.5); Total Bilirubin 0.6 mg/dL (0.3-1.2)
[2020-12-08 17:52] LABS: C Reactive Protein, High Sens 0.39 mg/L (0.000-3.000); Chol/HDL Ratio 2.71; LDL Cholesterol,Calculated 84.2 mg/dL (0.0-131.0); VLDL Calculation 23.8 mg/dL (5.00-40.00)
== END | disposition home or self-care (01) ==
LOC: LABMAIN 11:57
PROVIDERS: ATTEND Family Medicine
DX: Z00.00 Encounter for general adult medical examination without abnormal findings (principal); Z13.220 Encounter for screening for lipoid disorders; Z12.5 Encounter for screening for malignant neoplasm of prostate
CPT/HCPCS: 36415; 80053; 80061; 82306; 82550; 84153; 84443; 85025; 85652; 86141

== ENCOUNTER → 2020-12-28 | Outpatient (CLI) | payer BC ==
--- NOTE | 2020-12-28 08:18 | US ---
EXAMINATION TYPE: US prostate transrectal DATE OF EXAM: 12/28/2020 COMPARISON: NONE CLINICAL HISTORY: Z12.5 screening of prostate. This examination was performed using the transrectal probe. EXAM MEASUREMENTS: Gland Size: 4.2 x 2.4 x 4.4 Volume: 23.5 Predicted PSA: 2.8 Actual PSA (if available): 4.0 Diffusely heterogeneous without distinct mass. Seminal vesicles within normal limits. Normal size heterogeneous prostate with central calcifications . No hypoechoic nodules clearly seen. IMPRESSION: As above. Consider random sampling and/or MRI evaluation if the PSA continues to elevate . Predicted PSA = volume x 0.12 ng/ml Calculated Volume = 0.5236 x L x W x H
== END ==
LOC: RADUSWWP 07:30
PROVIDERS: ATTEND Family Medicine
DX: Z12.5 Encounter for screening for malignant neoplasm of prostate (principal)
CPT/HCPCS: 76872

== ENCOUNTER → 2022-03-14 | Outpatient (CLI) | payer BC ==
--- NOTE | 2022-03-16 10:25 | PE ---
EXAMINATION TYPE: PET CT fusion skull to thigh DATE OF EXAM: 03/14/2022 COMPARISON: CT neck March 04, 2022 HISTORY: History of prostate cancer one year ago with newly diagnosed cancer at level of tongue. TECHNIQUE: Following the intravenous administration of 9.18 mCi of F-18 FDG, whole body images are p erformed from the skull base to the midthigh. Images are reviewed on the computer in the coronal, ax ial, and sagittal planes. Reconstructed rotating images are created on independent workstation and r eviewed on the computer. A localization and attenuation correction CT is performed in conjunction w ith the PET scan. Dedicated PET/CT imaging of the neck. Blood glucose level equals 102. SCAN: Initial Scan FINDINGS: SKULL BASE AND NECK: Mild asymmetric hypermetabolic uptake fusion anterior right axial image [address] correlate. No abnormal hypermetabolic neck lymph nodes. CHEST, MEDIASTINUM, AND HILAR REGION: No areas of abnormal hypermetabolic uptake. ABDOMEN AND PELVIS: Nonspecific uptake in right sided colonic loops. Normal excretion. No areas of ab normal hypermetabolic uptake. OSSEOUS STRUCTURES: No areas of abnormal hypermetabolic uptake. OTHER CT: There is 4.1 cm ascending aortic aneurysm axial image 111. Mild calcified plaque bilateral carotid bulb level. Patient has little intra-abdominal fat. Postsurgical change to the lumbosacral sp ine is present. Scattered pelvic phleboliths. Prostate gland mildly enlarged in size. There is 1.0 cm rim calcified lesion anterior right kidney axial image 172. Coronary artery calcification is present . IMPRESSION: Primary tongue base neoplasm not well visualized. No abnormal adenopathy or metastatic di sease noted.
== END | disposition home or self-care (01) ==
LOC: RADPETMAIN 12:35
PROVIDERS: ATTEND Otolaryngology
DX: C04.0 Malignant neoplasm of anterior floor of mouth (principal)
CPT/HCPCS: 78815; A9552

== ENCOUNTER → 2022-05-07 | Outpatient (CLI) | payer BC ==
--- NOTE | 2022-05-08 11:08 | MR ---
EXAMINATION TYPE: MR Prostate wo/w con DATE OF EXAM: 05/07/2022 COMPARISON: PET/CT March 14, 2022. INDICATION: Prostate Cancer PSA: 5.4 ng/ml on August 28, 2021 Recent Biopsy and Date: April 19, 2021 Pathology Report (If Applicable): Right lateral mid adenocarcinoma 3+3 = 6 involving 50% tumor 1.5 mm length. Right mid adenocarcinoma [place] score 3+3 = 6 involving 5% tumor less than 1 mm length. TECHNIQUE: Examination was performed using a 3T MRI without an endorectal coil. Multiparametric imaging was perf ormed with T2 mutliplanar sequences, axial diffusion weighted imaging and dynamic contrast enhanced i maging, utilizing 7 mL intravenous Gadavist gadolinium contrast. FINDINGS: Slightly enlarged prostate gland with peripheral zones showing some areas of indistinct hypointensity and T2 weighted imaging. No significant focus of restricted diffusion is present. Some scattered are as of slight diminished signal on ADC mapping are noted. Central transitional zone shows no areas of definitive restricted diffusion. No suspicious focal nodu les are present. PROSTATE VOLUME: 4.1 cm SI x 3.5 cm AP x 4.7 cm LR Vol= 35.3 cc PSA DENSITY: 0.15 ng/ml/cc Predicted PSA equals 4.24 Prostate capsule is maintained. Seminal vesicles appear within normal limits. No suspicious bowel dil atation. No pelvic ascites. Artifact from fusion hardware lower lumbar spine is noted. IMPRESSION: Mildly enlarged prostate gland. A focus of clinically significant cancer is not clearly identified. Highest Assessment Category: 2 MRI Stage: T1c N0 M0 based on review of pelvic images. False negative rates for MRI range from 5-20% depending on risk profile. Assessment Categories: 1 ? Very low (clinically significant cancer is highly unlikely to be present) 2 ? Low (clinically significant cancer is unlikely to be present) 3 ? Intermediate (the presence of clinically significant cancer is equivocal) 4 ? High (clinically significant cancer is likely to be present) 5 ? Very high (clinically significant cancer is highly likely to be present)
== END | disposition home or self-care (01) ==
LOC: RADMRIMAIN 09:02
PROVIDERS: ATTEND Urology
DX: C61 Malignant neoplasm of prostate (principal)
CPT/HCPCS: 72197; A9585